=== PATIENT | female | born 1985 | race Caucasian/White ===

== ENCOUNTER 2018-08-02 13:15 | Observation (INO) | payer OTHER ==
[~2018-08-02] VITALS: Ht 165.1 cm; Wt 98.0 kg
[2018-08-02] MEDS ORDERED: FOLI1 PO (13:23)
== END 2018-08-02 15:10 | disposition home or self-care (01) ==
LOC: 4S 13:15
PROVIDERS: ADMIT Obstetrics & Gynecology; ATTEND Obstetrics & Gynecology
DX: O62.9 Abnormality of forces of labor, unspecified (principal); Z3A.38 38 weeks gestation of pregnancy
CPT/HCPCS: 81002; G0378

== ENCOUNTER 2018-08-03 22:55 | Inpatient (IN) | payer OTHER ==
[~2018-08-03] VITALS: Ht 165.1 cm; Wt 98.4 kg
[~2018-08-03 22:55] MED LIST: FOLI1 PO
[2018-08-03 23:09] VITALS: BP 102/64
[2018-08-03 23:16] VITALS: BP 112/64
[2018-08-03] MEDS ORDERED: METOCLOPRAMIDE HCL 5 MG/ML 2 ML VIAL IVP ONE (23:45)
[2018-08-03] MEDS ORDERED: FentaNYL CITRATE-PF 100 MCG/2 ML VIAL IVP PRN (23:45)
[2018-08-03] MEDS ORDERED: CITRIC ACID/SODIUM CITRATE 30 ML SOLUTION UDCUP PO ONE (23:45)
[2018-08-03] MEDS ORDERED: RINGERS SOLUTION,LACTATED 1,000 ML IV SCH (23:45)
[2018-08-04] MEDS ORDERED: BUPIVACAINE HCL/DEX-WATER/PF 0.75% 2 ML AMP ONE (00:16)
[2018-08-04] MEDS ORDERED: RINGERS SOLUTION,LACTATED 1,000 ML IV ONE (00:16)
[2018-08-04] MEDS ORDERED: SODIUM CHLORIDE 0.9% 1,000 ML IV ONE (00:16)
[2018-08-04 00:33] LABS: BASOPHILS % (AUTO) 0.2 % (0.0-2.0); EOSINOPHILS % (AUTO) 0.4 % (1.0-6.0); HEMATOCRIT 30.5 % (36-46); LYMPHOCYTES # (AUTO) 1.6 K/uL (1.0-4.8); LYMPHOCYTES % (AUTO) 12.1 % (22.0-44.0); MEAN CORPUSCULAR HEMOGLOBIN 27.2 pg (26.0-34.0); MEAN CORPUSCULAR HGB CONC 32.6 G/dL (31.0-37.0); MEAN CORPUSCULAR VOLUME 84 fL (80-100); MONOCYTES # (AUTO) 0.8 K/uL (0.1-1.0); MONOCYTES % (AUTO) 5.7 % (2.0-9.0); NEUTROPHILS # (AUTO) 10.8 K/uL (1.8-7.7); NEUTROPHILS % (AUTO) 81.6 % (40.0-70.0); PLATELET COUNT (AUTO)-OB 269 K/uL (150-450); RED BLOOD CELL COUNT(AUTO) 3.66 MIL/uL (4.00-5.20); RED CELL DISTRIBUTION WIDTH 14.6 % (11.5-14.5)
[2018-08-04] MEDS ORDERED: HYDROmorphone 2 MG/ML SYRINGE IVP PRN (00:45)
[2018-08-04] MEDS ORDERED: FentaNYL CITRATE-PF 100 MCG/2 ML VIAL IVP PRN ×2 (00:45→01:00)
[2018-08-04] MEDS ORDERED: MEPERIDINE-PF 25 MG/ML VIAL IVP PRN (00:45)
[2018-08-04] MEDS ORDERED: MORPHINE SULFATE 10 MG/ML SYRINGE IVP PRN (01:00)
[2018-08-04] MEDS ORDERED: DiphenhydrAMINE HCL 50 MG/ML VIAL IVP PRN (01:00)
[2018-08-04] MEDS ORDERED: ONDANSETRON HCL 4 MG/2 ML VIAL IVP PRN (01:00)
[2018-08-04] MEDS ORDERED: NALOXONE HCL 0.4 MG/ML VIAL IVP PRN (01:00)
[2018-08-04] MEDS ORDERED: NALBUPHINE HCL 10 MG/ML VIAL IVP PRN (01:00)
[2018-08-04] MEDS ORDERED: ACETAMINOPHEN/CODEINE 300-30 MG TABLET PO PRN (01:45)
[2018-08-04] MEDS ORDERED: CLINDAMYCIN 900 MG/D5% WATER 50 ML IV ONE (01:45)
[2018-08-04] MEDS ORDERED: GENTAMICIN 120 MG/NACL ISO-OSM 100 ML IV ONE (01:45)
[2018-08-04] MEDS ORDERED: LANOLIN 7 GM OINTMENT TP PRN (01:45)
[2018-08-04] MEDS: DEXTROSE 5%-0.45% SODIUM CHL 1,000 ML IV SCH ×4 (04:56→17:08)
[2018-08-04] MEDS: ACETAMINOPHEN 1000 MG/ISO-OSM 100 ML IV SCH ×2 (05:08→12:50)
[2018-08-04] MEDS: KETOROLAC TROMETHAMINE 30 MG/ML VIAL IVP SCH ×2 (06:53→12:51)
[2018-08-04] MEDS ORDERED: OXYGEN THERAPY IH SCH ×3 (08:00)
[2018-08-04] MEDS: NALBUPHINE HCL 10 MG/ML VIAL IVP PRN ×2 (11:15→15:32)
[2018-08-04] MEDS: IBUPROFEN 800 MG TABLET PO SCH (19:56)
[2018-08-04] MEDS: MAGNESIUM HYDROXIDE SUSPENSION 30 ML UDCUP PO SCH (21:08)
[2018-08-05] MEDS: ACETAMINOPHEN/CODEINE 300-30 MG TABLET PO PRN ×3 (04:13→16:14)
[2018-08-05] MEDS: IBUPROFEN 800 MG TABLET PO SCH ×4 (04:14→22:11)
[2018-08-05] MEDS ORDERED: ONDANSETRON HCL 4 MG/2 ML VIAL IVP ONE (05:46)
[2018-08-05] MEDS ORDERED: FentaNYL CITRATE-PF 100 MCG/2 ML VIAL IVP ONE (05:46)
[2018-08-05] MEDS ORDERED: OXYTOCIN 10 UNITS/ML VIAL IM ONE (05:46)
[2018-08-05] MEDS ORDERED: KETOROLAC TROMETHAMINE 60 MG/2 ML VIAL IM ONE (05:46)
[2018-08-05] MEDS ORDERED: MORPHINE SULFATE 4 MG/ML SYRINGE IVP ONE (05:46)
[2018-08-05] MEDS: MAGNESIUM HYDROXIDE SUSPENSION 30 ML UDCUP PO SCH ×2 (08:17→21:10)
[2018-08-06] MEDS: IBUPROFEN 800 MG TABLET PO SCH ×4 (04:04→22:00)
[2018-08-06] MEDS: MAGNESIUM HYDROXIDE SUSPENSION 30 ML UDCUP PO SCH ×2 (08:33→21:23)
[2018-08-06] MEDS: ACETAMINOPHEN/CODEINE 300-30 MG TABLET PO PRN (08:38)
[2018-08-07] MEDS: IBUPROFEN 800 MG TABLET PO SCH ×2 (04:17→10:02)
[2018-08-07] MEDS ORDERED: IBUP-2071 PO (11:04)
== END 2018-08-07 13:15 | disposition home or self-care (01) | DRG 788 ==
LOC: 4S 22:55 → OBSVTOIN 22:55
PROVIDERS: ADMIT Obstetrics & Gynecology; ATTEND Obstetrics & Gynecology
PROC: 10D00Z1 Extraction of Products of Conception, Low, Open Approach (ICD-10-PCS; principal; 2018-08-04)
DX: O69.81X0 Labor and delivery complicated by cord around neck, without compression, not applicable or unspecified (principal); O34.211 Maternal care for low transverse scar from previous cesarean delivery; Z3A.39 39 weeks gestation of pregnancy; Z37.0 Single live birth
CPT/HCPCS: 86850; 86900; 86901; 87081; J0131; J0690; J1580; J1885; J2270; J2300; J2405; J2590; J2765; J3010; J3490; J7030; J7120